=== PATIENT | female | born 1955 | race Caucasian/White ===

== ENCOUNTER → 2023-10-04 06:22 | Day surgery (SDC) | payer MEDICARE, BC, SELFPAY | LOC: GI 06:22 | PROVIDERS: ATTENDING PHYSICIAN Internal Medicine Gastroenterology; FAMILY PHYSICIAN Family Medicine | DX: Z12.11 Encounter for screening for malignant neoplasm of colon (principal); K63.5 Polyp of colon; K57.30 Diverticulosis of large intestine without perforation or abscess without bleeding; K64.8 Other hemorrhoids; K29.70 Gastritis, unspecified, without bleeding; K90.0 Celiac disease; K31.89 Other diseases of stomach and duodenum; K44.9 Diaphragmatic hernia without obstruction or gangrene; R74.8 Abnormal levels of other serum enzymes; R12 Heartburn | CPT/HCPCS: 45380; 43239; 88305; 88342 ==

== ENCOUNTER → 2024-06-30 14:54 | Outpatient (REF) | payer MEDICARE, BC, SELFPAY | LOC: WDC 14:54 | PROVIDERS: ATTENDING PHYSICIAN Obstetrics & Gynecology Gynecology; FAMILY PHYSICIAN Student in an Organized Health Care Education/Training Program | DX: M85.80 Other specified disorders of bone density and structure, unspecified site (principal); M85.89 Other specified disorders of bone density and structure, multiple sites; Z12.31 Encounter for screening mammogram for malignant neoplasm of breast | CPT/HCPCS: 77063; 77067 ==

== ENCOUNTER → 2024-09-11 14:58 | Outpatient (REF) | payer MEDICARE, BC, SELFPAY | LOC: RAD 14:58 | PROVIDERS: ATTENDING PHYSICIAN Family Medicine | DX: R79.89 Other specified abnormal findings of blood chemistry (principal); R07.89 Other chest pain | CPT/HCPCS: 71275; Q9967 ==

== ENCOUNTER 2025-05-27 11:08 | Emergency (ER) | payer MEDICARE, BC, SELFPAY ==
[2025-05-27 11:10] VITALS: BP 136/77
--- NOTE | 2025-05-27 11:29 | ED.GENMED ---
History of Present Illness
General
Chief Complaint: Abdominal Pain
Source: patient and spouse
Exam Limitations: none
Time Seen by Provider: 05/27/25 11:22
Nursing documentation reviewed up to this point in time: agreed with
History of Present Illness
History of Present Illness:
Note:
CHIEF COMPLAINT(S)
Abdominal pain.
HISTORY OF PRESENT ILLNESS
The patient is a 70-year-old female presenting with acute abdominal pain that started earlier today. The pain is described as severe and localized in the abdominal region, although she initially referenced pain in the chest area, possibly indicating
referred pain. The patient denies any associated nausea or vomiting. There is no history of similar episodes, and the patient denies any changes in urinary habits or difficulty urinating. When asked if the pain could be indicative of a kidney stone,
the patient did not verbalize a typical feeling associated with renal calculi. The pain is constant and reportedly exacerbates with movement, such as when driving over bumps in the car. The patient mentions the pain is not more intense upon
palpation, but there is some tenderness. No recent changes in diet were noted.
PAST MEDICAL AND SURGICAL HISTORY
The patient is currently on Zeposia, which commonly causes side effects that may include abdominal pain or cramps, suggesting a potential side effect as a contributing factor to the current symptoms. The patient denies any prior abdominal surgeries.
PHYSICAL EXAM
General: Alert, in no acute distress beyond reported discomfort.
Skin: Warm, dry.
Head: Normocephalic, atraumatic.
Neck: Supple, trachea midline.
Eye Ears, nose, mouth and throat: Oral mucosa moist.
Cardiovascular: Normal peripheral perfusion, No edema.
Respiratory: Respirations are non-labored.
Gastrointestinal : Abdomen nondistended.
Back: Normal range of motion, Normal alignment.
Musculoskeletal: Normal range of motion, normal strength.
Neurological: Alert and oriented to person, place, time, and situation, No focal neurological deficit observed.
Psychiatric: Cooperative, appropriate mood & affect.
PLAN
1. Administer intravenous fluids.
2. Obtain a urine sample for further analysis.
3. Perform a computed tomography (CAT) scan to evaluate for appendicitis, diverticulitis, or other potential causes of abdominal pain.
4. Conduct blood tests to assess the patients condition further.
5. Administer morphine for pain management, considering the patients discomfort and need for relief.
DIFFERENTIAL DIAGNOSIS
The Differential Diagnosis includes, in no particular order and is not limited to:
1. Appendicitis
2. Diverticulitis
3. Kidney stone
4. Urinary tract infection
5. Gallstones
6. Gastritis
7. Pancreatitis
8. Peptic ulcer disease
9. Bowel obstruction
10. Myocardial infarction (atypical presentation)
Note:
CARE-UPDATE
05/28/25 - 07:00
Patients imaging reveals no acute abdominal or pelvic pathology. Presence of constipation and a small fat-containing umbilical hernia noted without signs of incarceration or strangulation. Patient is stable and cleared for discharge.
Disposition:
SUMMARY OF ENCOUNTER
The patient, a 70-year-old female, was seen in the emergency department for acute abdominal pain that started earlier today. The pain was described as severe, constant, and exacerbated by movement. The patient is currently taking ozanimod, which can
cause abdominal pain or cramps, potentially contributing to her symptoms. Imaging in the emergency department did not reveal any acute abdominal or pelvic pathology, but it did show constipation and a small fat-containing umbilical hernia without
signs of incarceration or strangulation. The patient was treated with intravenous fluids and morphine for pain management.
DISPOSITION
The patient is stable and was discharged home with follow-up instructions to see her primary care physician.
ASSESSMENT
The patients abdominal pain is most likely due to constipation with a potential contributing factor of medication side effect (ozanimod).
EMERGENCY TREATMENTS ADMINISTERED
Morphine was administered for pain management.
PLAN
1. Administer intravenous fluids.
2. Instruct the patient to increase fiber intake and hydration to address constipation.
3. Recommend follow-up with her primary care provider for ongoing management and to discuss her medication regimen.
INDEPENDENT REVIEW OF LABS AND INTERPRETATION OF TESTS
My independent interpretation of the CT scan indicates no acute abdominal or pelvic pathology. Constipation and a small umbilical hernia were noted, without signs of incarceration or strangulation.
PATIENT EDUCATION AND COUNSELING
Provided information on the importance of fiber-rich diet and increased fluid intake to alleviate constipation. Discussed the potential side effects related to her current medication and encouraged a follow-up with her primary care provider to
review her medication regimen.
FOLLOW-UP INSTRUCTIONS
Please follow up with your primary care provider to discuss ongoing management and any medication adjustments.
MEDICATION RECONCILIATION
Ozanimod (brand name Zeposia) is part of the patients current medication regimen, and it was discussed as a potential contributor to her abdominal symptoms.
MEDICAL DECISION MAKING
- Number and Complexity of Problems Addressed:
Chronic conditions affecting care include the use of ozanimod. Differential diagnosis considered was abdominal pain due to constipation, possibly medication-related.
- Data:
Category 1:
CT scan reviewed and interpreted for evaluation of abdominal pain.
- Risk:
Prescription medication management discussed, given the potential side effect of ozanimod contributing to symptoms.
DIAGNOSIS
R10.9 - Unspecified abdominal pain
K59.00 - Constipation, unspecified
Z79.899 - Other fci (current) drug therapy (ozanimod)
Past History
Past History
ED Past Medical History: Other (DVT) and Other (colitis as a child, history of duodenal ulcer, L5-S1 herniated disc, migraines, kidney stones, recent diverticulitis)
ED Past Surgical History: Gynecological (C-sections x2), Tonsilectomy and Other (Bilateral carpal tunnel release, lithotripsy, back surgery)
Social History
Tobacco: Non-smoker
Alcohol: Occasional
Drug: None
Personal:
Living: with family
Employment: Employed
Family History
Family History: Other (Noncontributory)
Phy Exam
Physical Exam
Physical Exam:
.
Course
Orders/Labs/Results
Orders:
Orders
05/27/25 11:28
IV Insert/Care/Rem.- Treatment PRN
Lactated Ringers [Lr] 1,000 ml IV BOLUS
Morphine Sulfate 4 mg IV NOW STA
Ondansetron Injectable [Zofran] 4 mg IV NOW STA
05/27/25 11:29
CT Abd/pelvis W Iv Cont Urgent
Comment:
Reason For Exam: right flank pain, RLQ pain
05/27/25 11:52
Basic Metabolic Panel Urgent
Complete Blood Count/With Diff Urgent
Lipase Urgent
05/27/25 13:18
Urinalysis Reflex To Culture Urgent
Date Specimen was Collected: 05/27/25
Time Specimen was Collected: 13:17
Abnormal Lab Results
05/27/25
11:52
WBC 3.9 L 10^3/uL
(4.8-10.8)
Chloride 108 H mmol/L
(98-107)
05/27/25 11:52
05/27/25 11:52
Vital Signs
Initial and Last Documented VS:
Initial Vital Signs
Temp Pulse Resp BP Pulse Ox
98.4 F 76 16 136/77 98
05/27/25 11:10 05/27/25 11:10 05/27/25 11:10 05/27/25 11:10 05/27/25 11:10
Last Documented Vital Signs
Temp Pulse Resp BP Pulse Ox
98.4 F 76 16 136/77 98
05/27/25 11:10 05/27/25 11:10 05/27/25 11:10 05/27/25 11:10 05/27/25 11:30
*Pulse Oximetry
SaO2: 98
Oxygen Mode of Delivery: Room air
Patient hypoxic: no
*Critical Care Note
Total Time (30-74mins, 75-104mins- exclusive of procedures): Not Applicable
ED Attending Note
-
Portions of this chart may have been created with voice recognition software.� Occasional wrong word or��sound alike� substitutions may have occurred due to the inherent limitations of voice recognition software.
Discharge Plan
Departure
Patient Disposition: Home (Routine Discharge)
Date of Disposition: 05/27/25
Time of Disposition: 15:30
Patient with high blood pressure during this ER visit?: No
Discharge Problem:
Abdominal pain, Constipation
Instructions: Abdominal Pain
Prescriptions:
No Action
kstivkaubd-rztfwqcenjilc-mkmx 1 EACH tablet
1 ea PO BIDPRN PRN (Reason: headache)
Patient Comments:
generic fioricet
cyclosporine [Restasis] 10 DROPS dropperette
1 drp BOTH EYES BID
sertraline 100 MG tablet
100 mg PO QPM
melatonin 3 MG tablet
3 mg PO HSPRN PRN (Reason: sleep)
ibuprofen 200 MG tablet
400 - 600 mg PO Q4HPRN PRN (Reason: mild pain)
codeine-guaifenesin 5 ML liquid
5 ml PO HS
magnesium 250 MG tablet
250 mg PO DAILY
lorazepam 1 MG tablet
1 mg PO HS
oxycodone-acetaminophen 1 EACH tablet
1 ea PO DAILYPRN PRN (Reason: severe pain)
omega 7-cor-apd-fish oil [Fish Oil] 1,000 MG capsule
2,000 mg PO BID
guaifenesin [Mucus Relief ER] 600 MG tablet extended release 12hr
600 mg PO Q12H
atorvastatin 80 MG tablet
80 mg PO QPM Qty: 30 0RF
cyanocobalamin (vitamin B-12) 1,000 MCG tablet
1,000 mcg PO DAILY Qty: 30 0RF
aspirin 81 MG tablet,chewable
81 mg PO DAILY Qty: 30 0RF
fluticasone propionate 1 SPRAY spray,suspension
1 spray intranasal BID
cyclobenzaprine 10 MG tablet
10 mg PO PRN PRN (Reason: muscle spasm)
benzonatate 100 MG capsule
100 mg PO TID
mupirocin 1 APPLIC ointment
0 applic topical TID
apixaban [Eliquis] 5 MG tablet
5 mg PO BID Qty: 60 11RF
Referrals:
Francisco Diggs DO [Family Provider, Family Practice]
Interventions
Interventions:
*Risk Screen - Suicide Last Done: 05/27/25 11:10
*General Assessment Last Done: 05/27/25 12:00
*Neglect/Abuse Screening Last Done: 05/27/25 11:10
*ED- Fall Risk Assessment Last Done: 05/27/25 12:00
*Nursing Disposition Last Done: 05/27/25 15:53
HM-Cxxqzg-Ixgbimeggh Assessment Last Done: 05/27/25 12:00
Discharge Date and Time
Discharge Date/Time: 05/27/25 15:54
Print Language: PORTUGUESE
[2025-05-27] MEDS: LR 1000 IV (12:02)
[2025-05-27] MEDS: MORPHINE SULFATE 4 MG IV (12:03)
[2025-05-27] MEDS: ZOFRAN 4 MG IV (12:03)
[2025-05-27 12:15] LABS: Hematocrit 38.6 % (37.0-47.0); Hemoglobin 13.3 g/dL (12.0-16.0); Mean Corp Hgb Conc. 34.5 g/dL (33.0-37.0); Mean Corpuscular Volume 88.7 fL (81.0-99.0); Nucleated Red Blood Cells % 0 %; Platelet Count 269 10^3/uL (130-400); Red Cell Dist. Width 13.0 % (11.5-14.5)
[2025-05-27 12:39] LABS: Blood Urea Nitrogen 12 mg/dl (7-17); Calcium 9.1 mg/dl (8.4-10.2); Carbon Dioxide 25 mmol/L (22-30); Chloride 108 mmol/L (98-107); Glucose 95 mg/dl (70-99); Lipase 96 U/L (23-300); Sodium 137 mmol/L (135-145); eGFR > 60.00
[2025-05-27 13:41] LABS: Urine Character Clear (Clear)
== END 2025-05-27 15:54 | disposition home or self-care (01) ==
LOC: EMR 11:08
PROVIDERS: EMERGENCY PHYSICIAN Emergency Medicine; FAMILY PHYSICIAN Family Medicine
DX: R10.9 Unspecified abdominal pain (principal); K59.00 Constipation, unspecified; K42.9 Umbilical hernia without obstruction or gangrene; G43.909 Migraine, unspecified, not intractable, without status migrainosus; M51.27 Other intervertebral disc displacement, lumbosacral region; Z79.82 Long term (current) use of aspirin; Z86.718 Personal history of other venous thrombosis and embolism
CPT/HCPCS: 99284; 96374; 96375; 96361; 74177; 80048; 81003; 83690; 85025; Q9967

== ENCOUNTER → 2025-07-03 13:52 | Outpatient (REF) | payer MEDICARE, BC, SELFPAY | LOC: WDC 13:52 | PROVIDERS: ATTENDING PHYSICIAN Obstetrics & Gynecology Gynecology; FAMILY PHYSICIAN Family Medicine | DX: Z12.31 Encounter for screening mammogram for malignant neoplasm of breast (principal) | CPT/HCPCS: 77063; 77067 ==